=== PATIENT | male | born 1935 | race Caucasian/White ===

== ENCOUNTER → 2016-11-07 | Outpatient (CLI) | payer MEDICARE, OTHER | LOC: OD 12:57 | PROVIDERS: ATTEND Student in an Organized Health Care Education/Training Program | DX: R06.2 Wheezing (principal) | CPT/HCPCS: 71020 ==

== ENCOUNTER 2019-09-04 02:58 | Emergency (ER) | payer MEDICARE, OTHER ==
[2019-09-04 03:36] LABS: ALBUMIN 4.4 g/dL (3.5-5.0); ALKALINE PHOSPHATASE 88 U/L (38-126); ANION GAP 12 (5-19); ASPARTATE AMINO TRANSFERASE 20 U/L (17-59); BILIRUBIN,DIRECT 0.3 mg/dL (0.0-0.4); BILIRUBIN,TOTAL 1.4 mg/dL (0.2-1.3); BLOOD UREA NITROGEN 17 mg/dL (7-20); CALCIUM 9.7 mg/dL (8.4-10.2); CARBON DIOXIDE 27 mmol/L (22-30); CHLORIDE 98 mmol/L (98-107); CREATINE KINASE 58 U/L (55-170); GLUCOSE 258 mg/dL (75-110); POTASSIUM 4.1 mmol/L (3.6-5.0)
[2019-09-04 03:40] LABS: ABSOLUTE EOSINOPHILS # (AUTO) 0.1 10^3/uL (0.0-0.6); ABSOLUTE LYMPHOCYTES (AUTO) 1.3 10^3/uL (0.5-4.7); ABSOLUTE MONOCYTES (AUTO) 0.8 10^3/uL (0.1-1.4); BASOPHILS % (AUTO) 0.4 % (0-2); EOSINOPHILS % (AUTO) 0.7 % (0-6); HEMATOCRIT 38.6 % (37.9-51.0); HEMOGLOBIN 13.3 g/dL (13.5-17.0); LYMPHOCYTES % (AUTO) 13.9 % (13-45); MEAN CORPUSCULAR HEMOGLOBIN 31.8 pg (27.0-33.4); MEAN CORPUSCULAR HGB CONC 34.3 g/dL (32.0-36.0); MEAN CORPUSCULAR VOLUME 93 fl (80-97); MONOCYTES % (AUTO) 8.8 % (3-13); PLATELET COUNT 272 10^3/uL (150-450); RED BLOOD COUNT 4.17 10^6/uL (4.35-5.55); RED CELL DISTRIBUTION WIDTH 14.3 % (11.5-14.0); SEGMENTED NEUTROPHILS % (AUTO) 76.2 % (42-78); TOTAL CELLS COUNTED % (AUTO) 100 %; WHITE BLOOD COUNT 9.2 10^3/uL (4.0-10.5)
[2019-09-04 03:45] LABS: INTERNATIONAL RATION (INR) 0.92; PROTHROMBIN TIME 12.4 SEC (11.4-15.4)
[2019-09-04 03:48] LABS: CREATINE KINASE MB 3.28 ng/mL (<4.55); TOTAL PROTEIN 11.2 g/dL (6.3-8.2); TROPONIN I 0.015 ng/mL
--- NOTE | 2019-09-04 04:12 | RADIOLOGY REPORT (SQ) ---
EXAM DESCRIPTION: XR CHEST 1 VIEW COMPLETED DATE/TME: 09/04/2019 03:22 CLINICAL HISTORY: 84 years, Male, chest pain COMPARISON: 11/07/2016 chest NUMBER OF VIEWS: 1 TECHNIQUE: Portable chest LIMITATIONS: None. FINDINGS: Cardiomegaly. Stable postsurgical change. Fibrotic changes in the right upper lobe. No pneumothorax. IMPRESSION: No acute cardiopulmonary process copyright 2010 [employer]- All Rights Reserved
--- NOTE | 2019-09-04 04:24 | ER Document Report ---
ED General - General Chief Complaint: Flank Pain Stated Complaint: RIGHT FLANK PAIN Time Seen by Provider: 09/04/19 03:21 Primary Care Provider: JOHN MERA DO [Primary Care Provider] - Follow up as needed Notes: This 84-year-old man presents to the emergency department with complaint of right lower back and flank pain which began about noon yesterday 09/03/2019. Upon getting into the back of the emergency department an EKG was performed and revealed a heart block with a rate in the 40s and PVCs. The patient denies chest pain or shortness of breath however, his O2 sat was at 91-88 on room air. He has a history of quadruple vessel bypass, AAA repair in 2005. He rates the back pain as severe. He takes 12.5 mg of metoprolol daily. TRAVEL OUTSIDE OF THE [place] IN LAST 30 DAYS: No - Related Data Allergies/Adverse Reactions: No Known Allergies Allergy (Verified 08/01/14 20:50) Home Medications: Gabapentin, furosemide, januvia, lantus Past Medical History - Social History Smoking Status: Former Smoker Family History: Reviewed & Not Pertinent Patient has suicidal ideation: No Patient has homicidal ideation: No - Past Medical History Cardiac Medical History: Reports: Hx Heart Attack Endocrine Medical History: Reports: Hx Diabetes Mellitus Type 2 Past Surgical History: Reports: Hx Cardiac Surgery - quadruple bypass - Immunizations Hx Diphtheria, Pertussis, Tetanus Vaccination: Yes Review of Systems - Review of Systems Notes: Constitutional: Negative for fever. HENT: Negative for sore throat. Eyes: Negative for visual changes. Cardiovascular: Negative for chest pain. Respiratory: Negative for shortness of breath. Gastrointestinal: Negative for abdominal pain, vomiting or diarrhea. Genitourinary: + Right flank pain Musculoskeletal: + Lower back pain right side Skin: Negative for rash. Neurological: Negative for headaches, weakness or numbness. 10 point ROS negative except as marked above and in HPI. Physical Exam - Vital signs Vitals: Resp 21 H 09/04/19 02:59 - Notes Notes: PHYSICAL EXAMINATION: Physical Exam: General: Elderly male in moderate distress secondary to right flank pain HEENT: NC/AT, pupils equal round and reactive to light, MM moist,nares clear, Neck: supple, no adenopathy, no masses. Lungs: clear, no wheezing, no rales no rhonchi CVS: Irregular bradycardic rhythm, no murmur gallop or rub Abdomen: Soft active nontender, no masses, no hepatosplenomegaly Ext: No edema clubbing or cyanosis. Back: Tenderness in the right sacroiliac region Neuro: Alert and responsive, moving all 4 extremities on command, cranial nerves intact. Skin: Intact no open lesions, no rash PSYCH: Normal mood, normal affect. Course - Re-evaluation Re-evalutation: 09/04/19 04:24 Patient with a bradycardic rhythm and lost P wave which is irregular with PVCs, hemodynamically stable, on a beta-gunnar. I have contacted the cardiology services at [facility] in [place]. Discussed the patient with Dr. Allen, he has agreed to accept the patient for further evaluation and treatment. I discussed my concerns with the patient and his , they are agreeable to the transfer. - Vital Signs Vital signs: Temp Pulse Resp BP Pulse Ox 97.7 F 17 165/97 H 97 09/04/19 03:00 09/04/19 03:31 09/04/19 03:31 09/04/19 03:31 - Laboratory Result Diagrams: 09/04/19 03:03 09/04/19 03:03 Laboratory results interpreted by me: 09/04/19 09/04/19 09/04/19 03:03 03:03 03:03 RBC 4.17 L Hgb 13.3 L RDW 14.3 H Glucose 258 H Total Bilirubin 1.4 H NT-Pro-B Natriuret Pep 1210 H Total Protein 11.2 H 09/04/19 04:26 I have reviewed laboratory data and used this information for the treatment decisions regarding the patient. - Diagnostic Test Radiology reviewed: Image reviewed, Reports reviewed - Chest x-ray: Cardiomegaly with a fibrotic right upper lobe lung. Abdominal ultrasound: No obvious aneurysmal process noted. No free fluid. (This is my interpretation and not the radiologist). Discharge - Discharge Clinical Impression: Heart block, Right flank pain, Low O2 saturation Condition: Critical Disposition: [facility] Referrals: JOHN MERA DO [Primary Care Provider] - Follow up as needed
[2019-09-04 04:26] VITALS: BP 190/65
--- NOTE | 2019-09-04 04:41 | RADIOLOGY REPORT (SQ) ---
EXAM DESCRIPTION: US ABDOMEN COMPLETED DATE/TME: 09/04/2019 00:00 CLINICAL HISTORY: 84 years, Male, previous AAA repair COMPARISON: 08/11/2014 ultrasound TECHNIQUE: Complete transabdominal ultrasound LIMITATIONS: None. FINDINGS: Echogenic appearance to the liver consistent with fatty infiltrative change. Cholelithiasis. No gallbladder wall thickening or pericholecystic fluid. Negative sonographic Hyman sign. CBD measures 2.6 cm. Is otherwise portions of the pancreas are unremarkable. The spleen is unremarkable at 11 cm. Aneurysmal dilatation of the abdominal aorta, better seen on prior CT. However, there is approximate diameter of 8.5 x 8.0 cm of the mid abdominal aorta with mural calcification. No periaortic fluid collection or sonographic evidence for dissection. No ascites. The right kidney measures 11 cm, the left 13 cm. No renal calculus, mass, or hydronephrosis. IMPRESSION: Fatty infiltrative change to the liver. Cholelithiasis. No sonographic evidence for cholecystitis. Abdominal aortic aneurysm measuring 8.5 x 8.0 cm. When correlating with the prior CT this has increased in size. Maximal diameter on prior CT was 5.4 cm. Recommend follow-up as per below. For management of fusiform aneurysmal abdominal aortas: <2.6 cm aorta, no follow-up is recommended. 2.6-2.9 cm aorta, recommend follow-up every 5 years for aortas meeting the criteria for AAA (>1.5 x proximal normal segment; no f/u if < 1.5 x proximal normal segment; no f/u for aortas < 2.6 cm). 3.0-3.4 cm AAA, recommend follow-up every 3 years. 3.5-3.9 cm AAA, recommend follow-up every 2 years. 4.0-4.4 cm AAA, recommend follow-up every 12 months and recommend vascular consultation. 4.5-5.4 cm AAA, recommend follow-up every 6 months and recommend vascular consultation. >5.5 cm AAA, recommend referral to vascular specialist. For management of saccular abdominal aortic aneurysms of any size, recommend vascular consultation. Note: for AAA enlargement of >0.5 cm in 6 months or >1 cm in 1 year, recommend vascular consultation. References: J Am Timothy Radiol 2013; 10(10):789-794; J Vasc Surg. 2018; 67:2-77 copyright 2010 [employer] [employer]- All Rights Reserved
--- NOTE | 2019-09-04 09:27 | EKG REPORT ---
SEVERITY:- ABNORMAL ECG - SINUS RHYTHM VENTRICULAR PREMATURE COMPLEX NONSPECIFIC T ABNORMALITIES, ANT-LAT LEADS : Confirmed by: Daly Catherine 04-Sep-2019 09:27:20
== END 2019-09-04 04:35 | disposition short-term general hospital (02) ==
LOC: ER 02:58
DX: I45.9 Conduction disorder, unspecified (principal); R09.89 Other specified symptoms and signs involving the circulatory and respiratory systems; R10.9 Unspecified abdominal pain; M54.5 Low back pain; E11.9 Type 2 diabetes mellitus without complications; I25.2 Old myocardial infarction; Z95.1 Presence of aortocoronary bypass graft
CPT/HCPCS: 36415; 71045; 76700; 80053; 82550; 82553; 83880; 84484; 85025; 85610; 93005; 93010; 99285